=== PATIENT | female | born 1985 | race Hispanic/Latino ===

== ENCOUNTER 2022-06-26 18:23 | Observation (INO) | payer OTHER ==
--- OUTSIDE RECORDS SUMMARY | 2022-06-26 18:27 | XMS REPORT | Continuity of Care Document ---
:1985 Author Organization [facility] t Address [address] [place] [address] [address] [place] [address] Care Team Providers Name Role Phone PCP, PATIENT DOES NOT HAVE A Primary Care Physician Unavaila CIERA Mitchell Attending Clinician Unavailable Ciera Yancey Attending Clinician [phone] Visit, [place] Nurse Attending Clinician Unavailable LEBRON MENDES Attending Clinician Unavailable Lebron Luna Attending Clinician Iman Iverson Attending Clinician IMAN LEE Attending Clinician Unavailable Doctor Unassigned, [place] Attending Clinician Unavailable Lab, Adc Fam Pob I Attending Clinician Unavailable Ariana Machado MD Attending Clinician ARIANA MACHADO Attending Clinician Unavailable Juan Krause DO Attending Clinician Maryana Lee DO Attending Clinician Maria R Jacobo MD Attending Clinician MARIA R JACOBO Attending Clinician Unavailable MARIA R JACOBO Attending Clinician Unavailable Risk, Grt-Amfsz-Zc/High Attending Clinician Unavailable Megan Sebastian Attending Clinician Ultrasound, Doug-Mfnina Attending Clinician Unavailable Thania Krause MD Attending Clinician Faculty, Doug [facility] Attending Clinician Unavailable Elpidio Nolasco MD Attending Clinician Emilee Marcial MD Attending Clinician Lab, [place] Attending Clinician Unavailable HEIDY PARKER Attending Clinician Unavailable Jose DURAND, Maria R Admitting Clinician MARIA R JACOBO Admitting Clinician Unavailable Payers Payer Name Policy Type Policy Number Effective Date Expiration Date Nitin RIGGS [id number] 2019 HEALTH 00:00:00 Problems Condition Condition Condition Status Onset Resolution Last Treating Co mments Source Name Details Category Date Date Treatment Clinician Date Well woman Well woman Disease Active U nivers exam exam 6-08 ity of 00:00: [address] Encounter Encounter Disease Active Uni vers for for 1-18 ity of initial initial 00:00: [place] prescripti prescripti 00 Me dical on of on of Branch injectable injectable contracept contracept michael michael Disease Active Univers control control 9 [place] [address] [place] [address] BMI BMI Disease Active Univers 26.0-26.9, 26.0-26.9, 9- it y of adult adult 00:00: [address] Allergies, Adverse Reactions, Alerts Allergy Allergy Status Severity Reaction(s) Onset Inactive Treating Comm ents Source Name Type Date Date Clinician NO KNOWN Drug Active Univers ALLERGIE Class ity of S [facility] Social History Social Habit Start Date Stop Date Quantity Comments Source Exposure to 2022-03-26 2022-04-05 Not sure [facility] SARS-CoV-2 00:00:00 13:21:00 [facility] (event) [place] Tobacco use and 2022-04-05 2022-04-05 Smokeless tobacco Un iversity of exposure 00:00:00 00:00:00 non-user [facility] Alcohol intake 2022-04-05 2022-04-05 0 /d University 00:00:00 00:00:00 [facility] Sex Ass[birth year] At [birth year] Universit y of 00:00:00 00:00:00 [facility] Smoking Status Start Date Stop Date Source Never smoked tobacco [facility] Medications Ordered Filled Start Stop Current Ordering Indication Dosage Frequency Signature Comments Components Source Medication Medication Date Date Medication? Clinician (SIG) Name Name medroxyPROG 2021-2022- Yes [id number] 150mg Univers ESTERone 04-05 ity of (DEPO-PROVE 19:00: 18:59 [place] RA) 00 :00 Medical injection Branch 150 mg medroxyPROG 2021-2022- Yes [id number] 150mg 150 mg, Univers ESTERone 04-05 Intramuscu ity of (DEPO-PROVE 19:00: 18:59 lar, [place] RA) 00 :00 [id number], Medical injection 4 doses, Branch 150 mg First dose on Sun04/05/22 at 1400, Last dose on Sun12/13/22 at 1400, Routine medroxyPROG 2021-2022- Yes [id number] 150mg Univers ESTERone 04-05 ity of (DEPO-PROVE 19:00: 18:59 [place] RA) 00 :00 Medical injection Branch 150 mg medroxyPROG 2022- Yes [id number] 150mg 150 mg, Univers ESTERone 04-05 Intramuscu ity of (DEPO-PROVE 19:00: 18:59 lar, [place] RA) 00 :00 [id number], Medical injection 4 doses, Branch 150 mg First dose on Sun04/05/22 at 1400, Last dose on Sun12/13/22 at 1400, Routine Immunizations Ordered Filled Immunization Date Status Comments Sour e Immunization Name Name HPV9 2022-04-05 Completed University of 00:00:00 [facility] HPV9 2022-04-05 Completed University 00:00:00 [facility] Influenza Virus 2020-05-12 Completed Universit y of Vaccine Quad .5 mL 00:00:00 [facility] 6+ MO Branch Influenza Virus 2020-05-12 Completed Universit y of Vaccine Quad .5 mL 00:00:00 [facility] 6+ MO Branch TDAP (ADACEL) 2019-10-01 Completed University of VACCINE 00:00:00 [facility] Influenza Virus 2019-10-01 Completed Universit y of Vaccine Quad .5 mL 00:00:00 [facility] 6+ MO Branch TDAP (ADACEL) 2019-10-01 Completed University of VACCINE 00:00:00 [facility] Influenza Virus 2019-10-01 Completed Universit y of Vaccine Quad .5 mL 00:00:00 [facility] IM 6+ MO Branch Influenza Virus 2015-05-17 Completed Universit y of Vaccine Quad IM 3+ 00:00:00 [facility] Branch Influenza Virus 2015-05-17 Completed Universit y of Vaccine Quad IM 3+ 00:00:00 [facility] Branch TDAP 2015-02-11 Completed University of 00:00:00 [facility] TDAP 2015-02-11 Completed University of 00:00:00 [facility] Influenza Virus 2014-09-04 Completed Universit y of Vaccine Quad IM 00:00:00 [place] Med ical Multi-dose 6+ MO Branch Influenza Virus 2014-09-04 Completed Universit y of Vaccine Quad IM 00:00:00 [place] Med ical Multi-dose 6+ MO Branch Vital Signs Vital Name Observation Time Observation Value Comments Source Systolic blood 2022-04-05 18:22:00 124 [facility]Hg[facility] Diastolic blood 2022-04-05 18:22:00 82 mm[Hg] [facility] Heart rate 2022-04-05 18:22:00 69 /min [facility] Body temperature 2022-04-05 18:22:00 36.39 Zaria [facility] Respiratory rate 2022-04-05 18:22:00 18 /min [facility] Body height 2022-04-05 18:22:00 154.9 cm [facility] Body weight 2022-04-05 18:22:00 67.586 kg [facility] BMI 2022-04-05 18:22:00 28.15 kg/m2 [facility] Procedures Procedure Date / Time Performing Clinician Source Performed GC & CHLAMYDIA 2022-04-05 19:17:00 Ciera Bundy [facility] AMPLIFIED ASSAY [facility] HIV 1/2 AG-AB WITH 2022-04-05 19:17:00 Ciera Bundy [facility] REFLEX [facility] TRICHOMONAS AMPLIFIED 2022-04-05 19:17:00 [facility] PAP SMEAR-LIQUID 2022-04-05 19:17:00 Ciera Bundy Univer sity [facility] BASED-CP [facility] GALV ONLY - SYPHILIS 2022-04-05 19:17:00 [facility] IGG/IGM [facility] GARDASIL 9 (HPV 9V) 2022-04-05 19:01:11 [facility]ACC[facility] POCT TEST 2022-04-05 18:33:00 Ciera Bundy [facility] Encounters Start End Encounter Admission Attending Care Care Encounter Source Date/Time Date/Time Type Type Clinicians Facility Department ID 2021-06-17 Emergency [facility] [id number] [facility] 2022-[facility] 2022-06-28 Outpatient R [facility] [id number] Univers 10:00:00 10:00[facility] 2022-04-05 2022-04-05 [facility] [id number] Univers 13:00:00 14:16:33 CIERA sabillon [facility] 2022-04-05 2022-04-05 [facility] [id number] Univers 13:00:00 14:16:33 Visit Ciera Barragan 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 350.1.13.10 ity [facility] 4.2.7.2.686 Efren as MATERNAL [phone] Med ical & CHILD [address] [place] [address] 2022-04-05 2022-04-05 Outpatient R NIHARIKA [facility] [id number] Univers 13:00:00 14:16:33 CIERA sabillon [facility] 2022-03-27 2022-03-27 Outpatient R NIHARIKA [facility] [id number] Univers 09:00:00 09:00:00 CIERA sabillon [facility] 2022-02-16 2022-02-16 Telephone Niharika [facility] 1.2.840.114 [id number] Univers 00:00:00 00:00:00 Ciera Barragan 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 350.1.13.10 ity of [facility] 4.2.7.2.686 Efren as MATERNAL [phone] [facility] & [address] 2022-01-27 2022-01-27 Outpatient R [facility] [id number] Univers 09:45:00 09:45:00 CIERA sabillon [facility] 2022-01-02 2022-01-02 Outpatient R JOANNKWAME, [facility] [id number] Univers 08:30:00 08:53:52 CIERA sabillon [facility] 2022-01-02 2022-01-02 Nurse Visit, Ang-Rmp Nurse [facility] 1.2 .840.114 [id number] Univers 08:30:00 08:53:52 Visit Ciera Bundy 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 350.1.13. 10 ity of [facility] 4.2.7.2.686 Efren as MATERNAL [phone] [address] 2021-10-10 2021-10-10 Outpatient R VAUGHN [facility] [id number] Univers 09:30:00 10:21:35 ANDRIAJENNIFERNatasha sabillon [facility] 2021-10-10 2021-10-10 Nurse Visit, Ang-Rmchp Nurse [facility] 1.2 .840.114 [id number] Univers 09:30:00 10:21:35 Visit Lebron Mendes 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 350.1.13.10 ity of [facility] 4.2.7.2.686 Efren as MATERNAL [id number] [facility] & [address] 2021-10-04 2021-10-04 Outpatient Nawaf MENDES [facility] [id number] Univers 13:00:00 13:00:00 CARMENSABINAJENNIFERNatasha sabillon [facility] 2021-07-12 2021-07-12 Nurse Visit, Ang-Rmchp Nurse [facility] 1.2 .840.114 [id number] Univers 13:21:52 13:37:32 Visit Iman Lee 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 350.1.13.10 ity [facility] 4.2.7.2.686 Efren as MATERNAL [phone] [facility] & CHILD [address] [place] [address] 2021-07-12 2021-07-12 Outpatient R JESUS [facility] [id number] Univers 13:00:00 13:37:32 IMAN ity [facility] 2021-07-12 2021-07-12 Orders Doctor ZEESHAN 1.2.840.114 [id number] Univers 00:00:00 00:00:00 Only UnassALEXIS singh 350.1.13.10 ity [facility] 4.2.7.2.686 Efren as [phone] [address] 2021-04-19 2021-04-19 Nurse Visit, [facility] Nurse [facility] 1.2 .840.114 [id number] Univers 12:56:02 13:13:16 Visit Lebron Mendes 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 350.1.13.10 ity [facility] 4.2.7.2.686 Efren as MATERNAL [id number] [facility] ical & CHILD [address] [place] [address] 2021-04-19 2021-04-19 Outpatient R [facility] [id number] Univers 10:00:00 10:00:00 ity [facility] 2021-03-31 2021-03-31 Laboratory Lab, [facility] Pob I [facility] 1.2. 840.114 [id number] Univers 10:16:00 10:36:00 Only Ariana Machado [facility].1.13.10 [facility] 4.2.7.2.686 Efren as Professio [phone] Mi [facility] [address] [place] [address] 2021-03-31 2021-03-31 Outpatient R RUBEN [facility] [id number] Univers 10:20:00 10:20:00 ARIANA [facility] 2021-01-25 2021-01-25 Office [facility] [id number] Univers 09:24:09 10:24:06 Visit Ciera Barragan 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 350.1.13.10 ity of REGIONAL 4.2.7.2.686 Efren as MATERNAL [id number] [facility] ical & CHILD [address] [place] [address] 2021-01-25 2021-01-25 Outpatient [facility] [id number] Univers 09:15:00 09:15:00 CIERA lewis o [facility] 2021-01-25 2021-01-25 Outpatient [facility] [id number] Univers 08:30:00 08:30:00 LEBRON sabillon [facility] 2020-11-08 2020-11-08 Patient [facility] 1.2.840.114 [id number] Univers 00:00:00 00:00:00 Outreach Juan MACHADO 350.1.13.10 i ty of [facility] 4.2.7.2.686 [place] ESPINOS[place] [phone] [address] 2020-10-29 2020-10-29 Nurse Visit, [place] Nurse [facility] 1.2 .840.114 [id number] Univers 09:39:45 10:07:51 Visit Lebron Mendes 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 350.1.13.10 ity of REGIONAL 4.2.7.2.686 Efren as MATERNAL [id number] [facility] & CHILD [address] [place] [address] 2020-10-29 2020-10-29 Outpatient R VAUGHN [facility] [id number] Univers 09:30:00 09:30:00 LEBRON sabillon [facility] 2020-10-27 2020-10-27 Outpatient R [facility] [id number] Univers 10:30:00 10:30:00 ity of [facility] 2020-08-04 2020-08-04 Nurse Visit, [place] Nurse [facility] 1.2 .840.114 [id number] Univers 16:02:30 16:29:02 Visit Ciera Bundy 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 350.1.13. 10 ity of REGIONAL 4.2.7.2.686 Efren as MATERNAL [id number] [facility] & CHILD [address] [place] [address] 2020-08-04 2020-08-04 Outpatient R [facility] [id number] Univers 16:00:00 16:00:00 ity of [facility] 2020-05-12 2020-05-12 Nurse Visit, Doug-Rmchp Nurse [facility] 1.2 .840.114 [id number] Univers 15:44:14 16:17:26 Visit Carmen Mendeslina Mccracken 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 350.1.13.10 ity of [facility] 4.2.7.2.686 Efren as MATERNAL [id number] [facility] [address] [place] [address] 2020-05-12 2020-05-12 Outpatient [facility] [id number] Univers 15:30:00 15:30:00 LEBRON ity o f [facility] 2020-05-11 2020-05-11 Outpatient R [facility] [id number] Univers 14:00:00 14:00:00 ity of [facility] 2020-05-07 2020-05-07 Emergency [facility] 1.2.840.114 [id number] Univers 10:32:00 11:50:00 Maryana Duarte [place] 350.1.13.10 ity [facility] 4.2.7.2.686 [place] [facility] [phone] [address] 2020-02-17 2020-02-17 Office [facility] 1.2.840.114 [id number] Univers 15:32:08 16:06:38 Visit Lebron Mccracken 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 350.1.13.10 ity of [facility] 4.2.7.2.686 Efren as MATERNAL [id number] [facility] & CHILD [address] [place] [address] 2020-02-17 2020-02-17 Outpatient R [facility] [id number] Univers 15:15:00 15:15:00 ANDRIANDNatasha itforrest o f [facility] 2020-02-12 2020-02-12 Refill [facility] 1.2.840.114 [id number] Univers 00:00:00 00:00:00 Lebron R 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 350.1.13.10 ity of [facility] 4.2.7.2.686 Efren as MATERNAL [id number] [facility] & CHILD [address] [place] [address] 2020-02-02 2020-02-02 Outpatient R VAUGHN [facility] [id number] Univers 14:15:00 14:15:00 LEBRON butt [facility] 2020-01-21 2020-01-21 Outpatient R VAUGHN [facility] [id number] Univers 07:45:00 07:45:00 LEBRON butt [facility] 2020-01-14 2020-01-14 Office [facility] 1.2.840.114 [id number] Univers 15:33:23 16:12:18 Visit Lebron R 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 350.1.13.10 ity of [facility] 4.2.7.2.686 Efren as MATERNAL [phone] [facility] & [address] 2020-01-14 2020-01-14 Outpatient R VAUGHN [facility] [id number] Univers 15:15:00 15:15:00 LEBRON butt [facility] 2019-12-25 2019-12-25 Outpatient R VAUGHN [facility] [id number] Univers 13:45:00 13:45:00 LEBRON sabillon [facility] 2019-12-25 2019-12-25 Telemedici [facility] 1.2.840.114 [id number] Univers 12:32:56 12:47:56 ne Visit Lebron R 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 350.1.13.10 ity of [facility] 4.2.7.2.686 Efren as MATERNAL [id number] [facility] & [address] 2019-12-03 2019-12-06 Hospital ZEESHAN Jacobo 1.2.840.114 [id number] Univers 07:04:00 18:18:00 Encounter Maria R ESPINOZA 350.1.13.10 ity of [facility] 4.2.7.2.686 Efren as [phone] [address] 2019-12-03 2019-12-03 Outpatient P MARIA R JACOBO [facility] BRUCE [id number] Univers 07:04:00 07:04:00 MARIA R JACOBO itforrest [facility] 2019-12-02 2019-12-02 [facility]phone [facility] [id number] Univers 00:00:00 00:00:00 Roshunda R 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 350.1.13.10 ity of [facility] 4.2.7.2.686 Efren as MATERNAL [phone] [facility] ical & CHILD [address] [place] [address] 2019-12-02 2019-12-02 [facility] [id number] [id number] Univers 00:00:00 00:00:00 Roshunda R 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 350.1.13.10 ity of [facility] 4.2.7.2.686 Efren as MATERNAL [id number] [facility] & CHILD [address] [place] [address] 2019-12-01 2019-12-01 Routine [facility] 1.2.840.114 [id number] Univers 09:07:38 11:07:15 Roshunda R 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 350.1.13.10 ity of Visit [facility] 4.2.7.2.686 Efren as MATERNAL [id number] [facility] CHILD [address] [place] [address] 2019-12-01 2019-12-01 Outpatient Nawaf [facility] [id number] Univers 09:00:00 09:00:00 ROSHUNDA ity o f [facility] 2019-12-01 2019-12-01 Orders Doctor ZEESHAN 1.2.840.114 [id number] Univers 00:00:00 00:00:00 Only Unassigned, ALEXIS 350.1.13.10 ity of [place] [facility] 4.2.7.2.686 Efren as [phone] [address] 2019-11-27 2019-11-27 [facility] 1.2.840.114 [id number] Univers 08:59:16 09:37:15 Roshunda R 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 350.1.13.10 ity of Visit [facility] 4.2.7.2.686 Efren as MATERNAL [id number] [facility] ical & CHILD [address] [place] [address] 2019-11-27 2019-11-27 Outpatient Nawaf [facility] [id number] Univers 09:00:00 09:00:00 ROSHUNDA ity o f [facility] 2019-11-21 2019-11-21 Telephone Vaughn [facility] 1.2.214.493 [id number] Univers 00:00:00 00:00:00 Anaia R 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 350.1.13.10 ity of REGIONAL 4.2.7.2.686 Efren as MATERNAL [id number] [facility] ical & CHILD 107 [facility] 2019-11-21 2019-11-21 Abstract Vaughn [facility] 1.2.840.114 [id number] Univers 00:00:00 00:00:00 Lebron R 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 350.1.13.10 ity of REGIONAL 4.2.7.2.686 Efren as MATERNAL [id number] [facility] ical & CHILD [address] [place] [address] 2019-11-20 2019-11-20 Routine Risk, Zyz-Tckrr-Kc/High [facility] 1. 2.840.114 [id number] Univers 09:52:39 11:26:41 Megan Abel 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 350.1.13.10 ity of Visit REGIONAL 4.2.7.2.686 Efren as MATERNAL [id number] [facility] ical & CHILD [address] [place] [address] 2019-11-20 2019-11-20 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[facility] 1.2 .840.114 [id number] Univers 09:04:19 09:34:19 Visit Thania Krause 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 350.1.13.10 ity of REGIONAL 4.2.7.2.686 Efren as MATERNAL [id number] [facility] ical & CHILD 369 [facility] 2019-11-20 2019-11-20 Outpatient R [facility] [id number] Univers 09:00:00 09:00:00 ity of [facility] 2019-11-20 2019-11-20 Orders Doctor BYERS 1.2.840.114 [id number] Univers 00:00:00 00:00:00 Only Unassigned, ALEXIS 350.1.13.10 ity of [facility] 4.2.7.2.686 Efren as [phone] [address] 2019-11-17 2019-11-17 Telemedici Faculty, [facility] 1.2.840.114 [id number] Univers 08:16:17 12:33:55 ne Visit Thania Krause 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 350.1.13.10 ity of REGIONAL 4.2.7.2.686 Efren as MATERNAL [id number] [facility] [address] [place] [address] 2019-11-17 2019-11-17 Outpatient R [facility] [id number] Univers 09:00:00 09:00:00 ity of [facility] 2019-11-17 2019-11-17 Orders Doctor ZEESHAN 1.2.840.114 [id number] Univers 00:00:00 00:00:00 Only Unassigned, ALEXIS 350.1.13.10 ity of [place] [facility] 4.2.7.2.686 Efren as [phone] [address] 2019-11-13 2019-11-13 Outpatient R [facility] [id number] Univers 08:15:00 08:15:00 ity [facility] 2019-11-12 2019-11-12 Telephone Faculty, [facility] 1.2.840.114 [id number] Univers 00:00:00 00:00:00 [facility] 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 350.1.13.10 ity of [facility] 4.2.7.2.686 Efren as MATERNAL [id number] [facility] & CHILD [address] [place] [address] 2019-11-10 2019-11-10 Routine Vaughn [facility] 1.2.840.114 [id number] Univers 09:25:13 10:29:10 Roshunda R 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 350.1.13.10 ity of Visit [facility] 4.2.7.2.686 Efren as MATERNAL [id number] [facility] & [address] 2019-11-10 2019-11-10 Outpatient R [facility] [id number] Univers 09:15:00 09:15:00 ity [facility] 2019-11-06 2019-11-06 [facility] 1.2.840.114 [id number] Univers 08:23:51 09:26:24 Roshunda R 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 350.1.13.10 ity of Visit REGIONAL 4.2.7.2.686 Efren as MATERNAL [id number] [facility] ical & CHILD [address] [place] [address] 2019-11-06 2019-11-06 Outpatient R [facility] [id number] Univers 08:15:00 08:15:00 ity of [facility] 2019-11-03 2019-11-03 Routine Faculty, Doug Mei [facility] 1.2 .840.114 [id number] Univers 08:38:38 09:08:38 Elpidio Nolasco 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 350.1.13. 10 ity of Visit REGIONAL 4.2.7.2.686 Efren as MATERNAL [id number] [facility] [address] [place] [address] 2019-11-03 2019-11-03 Outpatient R [facility] [id number] Univers 09:00:00 09:00:00 ity of [facility] 2019-11-03 2019-11-03 Outpatient R [facility] [id number] Univers 08:00:00 08:00:00 ity of [facility] 2019-10-22 2019-10-22 Telephone Vaughn [facility] 1.2.205.496 [id number] Univers 00:00:00 00:00:00 Lebron Mccracken 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 350.1.13.10 ity of REGIONAL 4.2.7.2.686 Efren as MATERNAL [id number] [facility] & CHILD [address] [place] [address] 2019-10-20 2019-10-20 Routine Faculty, Doug Mei [facility] 1.2 .840.114 [id number] Univers 09:21:21 10:23:24 Thania Krause 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 350.1.13.10 ity of Visit Emilee Marcial REGIONAL 4.2.7.2.686 [place] MATERNAL [phone] [facility] CHILD [address] [place] [address] 2019-10-20 2019-10-20 Outpatient R [facility] [facility] [id number] Univers 09:30:00 09:30:00 ity of [facility] 2019-10-20 2019-10-20 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, [facility] 1.2 .840.114 [id number] Univers 08:10:53 08:40:53 Visit Thania Krause 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 350.1.13.10 ity of REGIONAL 4.2.7.2.686 Efren as MATERNAL [phone] [facility] ical & CHILD 369 [facility] 2019-10-20 2019-10-20 [facility] 1.2.840.114 [id number] Univers 00:00:00 00:00:00 Roshunda R 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 350.1.13.10 ity of [facility] 4.2.7.2.686 Efren as MATERNAL [phone] [facility] & CHILD [address] [place] [address] 2019-10-14 2019-10-14 [facility] 1.2.840.114 [id number] Univers 07:52:52 08:53:28 Roshunda R 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 350.1.13.10 ity of Visit [facility] 4.2.7.2.686 Efren as MATERNAL [phone] [facility] & [address] 2019-10-14 2019-10-14 Outpatient R [facility] [id number] Univers 08:00:00 08:00:00 ROSHUNDA ity o f [facility] 2019-10-14 2019-10-14 Orders Doctor ZEESHAN 1.2.840.114 [id number] Univers 00:00:00 00:00:00 Only Unassigned, ALEXIS 350.1.13.10 ity of [facility] 4.2.7.2.686 Efren as [phone] [address] 2019-10-07 2019-10-07 [facility] 1.2.840.114 [id number] Univers 00:00:00 00:00:00 Roshunda R 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 350.1.13.10 ity of [facility] 4.2.7.2.686 Efren as MATERNAL [phone] [facility] ical & CHILD [address] [place] [address] 2019-10-01 2019-10-01 [facility] 1.2.840.114 [id number] Univers 08:13:24 09:21:41 Roshunda R 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 350.1.13.10 ity of Visit [facility] 4.2.7.2.686 Efren as MATERNAL [phone] Med ical & CHILD 107 [facility] 2019-10-01 2019-10-01 Orders Doctor ZEESHAN 1.2.840.114 [id number] Univers 00:00:00 00:00:00 Only Unassigned, ALEXIS 350.1.13.10 ity of [place] [facility] 4.2.7.2.686 Efren as [phone] [address] 2019-09-24 2019-09-24 Nurse Visit, [facility] Nurse [facility] 1.2 .840.114 [id number] Univers 09:06:19 09:56:52 Visit Lebron Mendes 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 350.1.13.10 ity of [facility] 4.2.7.2.686 Efren as MATERNAL [phone] Med ical & CHILD 107 [facility] 2019-09-23 2019-09-23 Telephone Vaughn [facility] [id number] Univers 00:00:00 00:00:00 Anaia R 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 350.1.13.10 ity of [facility] 4.2.7.2.686 Efren as MATERNAL [phone] [facility] ical & CHILD [address] [place] [address] 2019-09-22 2019-09-22 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 114 [id number] Univers 08:10:16 08:35:49 Visit Lebron Mendes 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 350.1.13.10 ity of [facility] 4.2.7.2.686 Efren as MATERNAL [phone] Med ical & CHILD 107 [facility] 2019-09-10 2019-09-10 Telephone Vaughn [facility] [id number] Univers 00:00:00 00:00:00 Andrianda R 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 350.1.13.10 ity of [facility] 4.2.7.2.686 Efren as MATERNAL [phone] [facility] ical & CHILD 107 [facility] 2019-05-28 2019-05-28 Outpatient P [facility] [id number] Univers 08:30:00 09:01:01 HEIDY itforrest of [facility] 2019-05-02 2019-05-02 Telephone Vaughn [facility] [id number] Univers 00:00:00 00:00:00 Roshunda R 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 350.1.13.10 ity of REGIONAL 4.2.7.2.686 Efren as MATERNAL [id number] [facility] ical & CHILD [address] [place] [address] 2019-05-01 2019-05-01 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 114 [id number] Univers 08:06:43 08:21:43 Visit Carmen Mendeslina R 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 350.1.13.10 ity of REGIONAL 4.2.7.2.686 Efren as MATERNAL [phone] [facility] ical & CHILD [address] [place] [address] 2019-04-29 2019-04-29 Telephone Vaughn [facility] [id number] Univers 00:00:00 00:00:00 Roshunda R 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 350.1.13.10 ity of REGIONAL 4.2.7.2.686 Efren as MATERNAL [phone] [facility] ical & CHILD [address] [place] [address] 2019-04-29 2019-04-29 Telephone Vaughn [facility] [id number] Univers 00:00:00 00:00:00 Carmensabinanda R 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 350.1.13.10 ity of REGIONAL 4.2.7.2.686 Efren as MATERNAL [phone] Med ical & CHILD [address] [place] [address] 2019-04-28 2019-04-28 Initial Vaughn [facility] 1.2.840.114 [id number] Univers 13:33:27 14:58:34 Roshunda R 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 350.1.13.10 ity of Visit REGIONAL 4.2.7.2.686 Efren as MATERNAL [phone] [facility] ical & CHILD [address] [place] [address] 2019-04-28 2019-04-28 Orders Doctor BYERS 1.2.840.114 [id number] Univers 00:00:00 00:00:00 Only Unassigned, ALEXIS 350.1.13.10 ity of [facility] 4.2.7.2.686 Efren as [phone] [address] Results Test Description Test Time Test Comments Results Result Comments Source [facility] ONLY - SYPHILIS IGG/IGM 2022-04-06 16:49:28 Test Item Value Reference Range Interpretation Comme nts Syphilis IgG/IgM (test code = Non-reactive Non-reactive 56330-4) LEENA (test code = LEENA) Non-reactive - No serologic evidence of T. pallidum infection. Cannot exclude incubating or early syphilis. Submit a second specimen in 2-4 weeks if syphilis is clinically suspected. Equivocal - Further testing to follow. Reactive - Further testing to follow. Lab Interpretation (test code = Normal 20081-2) [facility] ONLY - SYPHILIS [id number] 16:49:28 Test Item Value Reference Range Interpretation Comments Syphilis IgG/IgM (test Non-reactive Non-reactive code = 55104-5) LEENA (test code = LEENA) Non-reactive - No serologic evidence of T. pallidum infection. Cannot exclude incubating or early syphilis. Submit a second specimen in 2-4 weeks if syphilis is clinically suspected. Equivocal - Further testing to follow. Reactive - Further testing to follow. Lab Interpretation (test Normal code = 16495-5) [facility] 1/2 AG-AB WITH [id number] 05:43:58 Test Item Value Reference Range Interpretation Comments HIV Negative Negative Semi-quantitative (test code = 43500-1) LEENA (test code = Non-reactive for HIV-1 LEENA) antigen and HIV-1/HIV-2 antibodies. ?No laboratory evidence of HIV infection. ?Repeat in 2-4 weeks if acute HIV infection is suspected. [facility] 1/2 AG-AB WITH [id number] 05:43:58 Test Item Value Reference Range Interpretation Comments HIV Negative Negative Semi-quantitative (test code = 12671-3) LEENA (test code = Non-reactive for HIV-1 LEENA) antigen and HIV-1/HIV-2 antibodies. ?No laboratory evidence of HIV infection. ?Repeat in 2-4 weeks if acute HIV infection is suspected. [id number]:33:00 Test Item Value Reference Range Interpretation Comments POCT PREG (test code = 1605) Negative On board controls acceptable with C Yes Line (test code = 3574) POCT PREG LOT # (test code = 3575) POCT PREG TEST DATE (test code = 3576) [facility] [id number] 18:33:00 Test Item Value Reference Range Interpretation Comments POCT PREG (test code = 1605) Negative On board controls acceptable with C Yes Line (test code = 3574) POCT PREG LOT # (test code = 3575) POCT PREG TEST DATE (test code = 3576) [facility]
[2022-06-26 19:17] LABS: Absolute Lymphocytes (CBC) 1.2 K/uL (0.7-4.9); Hematocrit 39.6 % (36.0-45.0); Lymphocytes % 12.8 % (15.3-44.8); MCV 91.1 fL (80-100); RBC Red Blood Cell Count 4.35 M/uL (3.86-4.86)
--- NOTE | 2022-06-26 19:28 | RAD REPORT ---
EXAM DESCRIPTION: RAD - Chest Single View - 06/26/2022 7:15 pm CLINICAL HISTORY: CHEST PAIN, primarily left side COMPARISON: April 2017 TECHNIQUE: AP portable chest image was obtained 06/26/2022 7:15 pm . FINDINGS: No peripheral mass consolidations seen. Heart and vasculature are normal. Left costophreni c angle blunting is present. No acute bony abnormality seen. No acute aortic findings suspected. IMPRESSION: Small left pleural effusion is suspected. No mass or consolidations seen.
[2022-06-26 19:47] LABS: Potassium 3.3 mmol/L (3.5-5.1); Troponin High Sensitivity 4.1 pg/mL (<58.9)
[2022-06-26 21:22] LABS: Urine Blood Negative (Negative); Urine Glucose Negative (Negative); Urine Protein Negative (Negative); Urine Specific Gravity 1.025 (1.005-1.030)
[2022-06-26 21:59] LABS: Urine Specific Gravity/Preg 1.025 (1.005-1.030)
--- NOTE | 2022-06-26 22:19 | RAD REPORT ---
EXAM DESCRIPTION: CT - Chest For Pe Angio - 06/26/2022 9:25 pm CLINICAL HISTORY: elevated dd, dyspnea COMPARISON: Chest Single View dated 06/26/2022 TECHNIQUE: Dynamically enhanced 3 mm thick images of the chest were obtained during administration o f approximately 150mL Isovue 370 IV contrast. Coronal and oblique MIP reconstruction images were gene rated and reviewed. Exam utilizes a protocol to evaluate the pulmonary arterial tree. All CT scans are performed using dose optimization technique as appropriate and may include automated exposure control or mA/KV adjustment according to patient size. FINDINGS: Pulmonary embolus is present at the left pulmonary artery bifurcation into the upper and l ower lobes. Thrombus continues into the segmental branches of the left lower lobe. Lung parenchymal o pacification lateral and posterior left lung base may well be pulmonary hemorrhage. Small left pleura l effusion is present. Segmental branch pulmonary emboli seen in the medial right upper lobe. Thrombu s is present in the right middle lobe pulmonary artery extending into segmental branches. There is a large pulmonary embolus in the right lower lobe pulmonary artery extending into the proximal segmenta l branches. The aorta as imaged shows no acute or suspicious finding. No pericardial thickening or effusion. Right lung field is clear. No right-sided pleural fluid. No pneumothorax. No mediastinal or hilar suspicious masses. No chest wall masses or abnormal axillary lymphadenopathy. No cardiomegaly or pericardial effusion. IMPRESSION: Extensive bilateral pulmonary emboli involving the lobar and segmental branches of the r ight middle, right lower and left lower lobes. Small segmental branch emboli seen in the right upper lobe. Small left pleural effusion. Lateral and posterior left lung base parenchymal opacification may be he morrhage from pulmonary infarction.
--- NOTE | 2022-06-26 22:28 | EDPHYS ---
Physician Documentation [facility] Name: Lisa Gloria Age: 36 yrs Sex: Female : 1985 Arrival Date: 06/26/2022 Time: 18:27 Bed 26 Private MD: ED Physician Vadim Bal HPI: 06/26 19:53 This 36 yrs old Female presents to ER via Ambulatory with complaints of Chest kb Pain, Shortness Of Breath, Back Pain. 19:54 The patient or guardian reports chest pain that is located primarily in the anterior kb chest wall, left. The pain does not radiate. Associated signs and symptoms: Pertinent positives: shortness of breath. The chest pain is described as aching. Duration: The patient or guardian reports a single episode, that is still ongoing. Modifying factors: The symptoms are alleviated by nothing. the symptoms are aggravated by deep breath. Severity of pain: At its worst the pain was mild moderate in the emergency department the pain is unchanged. The patient has not experienced similar symptoms in the past. The patient has not recently seen a physician. Pt reports left chest and back pain for 3 days with shortness of breath. 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 - Social history:: Smoking status: Patient denies any tobacco usage or history of. Patient/guardian denies using alcohol. ROS: 19:52 Constitutional: Negative for fever, chills, and weight loss. kb 19:52 Cardiovascular: Positive for chest pain, Negative for edema, orthopnea, palpitations, paroxysmal nocturnal dyspnea. 19:52 Respiratory: Positive for shortness of breath. 19:52 All other systems are negative. Exam: 19:52 Constitutional: This is a well developed, well nourished patient who is awake, alert, kb and in no acute distress. Head/Face: Normocephalic, atraumatic. ENT: Moist Mucous membranes Cardiovascular: Regular rate and rhythm with a normal S1 and S2. No gallops, murmurs, or rubs. No pulse deficits. Respiratory: Respirations even and unlabored. No increased work of breathing. Talking in full sentences Abdomen/GI: Soft, non-tender. No distention Skin: Warm, dry with normal turgor. Normal color. MS/ Extremity: Pulses equal, no cyanosis. Neurovascular intact. Full, normal range of motion. Neuro: Awake and alert, GCS 15, oriented to person, place, time, and situation. Moves all extremities. Normal gait. Psych: Awake, alert, with orientation to person, place and time. Behavior, mood, and affect are within normal limits. 19:52 ECG was reviewed by the Attending Physician. Vital Signs: 18:32 BP 129 / 87; Pulse 107; Resp 18; Temp 98.8(O); Pulse Ox 98% on R/A; Weight 68.04 kg; ld1 Height 5 ft. 1 in. (154.94 cm); Pain 6/10; 19:30 BP 122 / 80; Pulse 90; Resp 20; Pulse Ox 99% on R/A; tp1 20:30 BP 110 / 79; Pulse 87; Resp 22; Pulse Ox 98% on R/A; tp1 21:00 BP 107 / 76; Pulse 86; Resp 20; Pulse Ox 100% on R/A; tp1 22:45 BP 117 / 87; Pulse 77; Resp 23; Pulse Ox 100% on R/A; tp1 18:32 Body Mass Index 28.34 (68.04 kg, 154.94 cm) ld1 MDM: 18:35 Patient medically screened. kb 19:52 Data reviewed: vital signs, nurses notes. Data interpreted: Pulse oximetry: on room air kb is 98 %. Interpretation: normal. Counseling: I had a detailed discussion with the patient and/or guardian regarding: the historical points, exam findings, and any diagnostic results supporting the discharge/admit diagnosis, lab results, radiology results, the need for outpatient follow up, a family practitioner, to return to the emergency department if symptoms worsen or persist or if there are any questions or concerns that arise at home. 19:55 ED course: HEART score 0. kb 22:27 Physician consultation: Daniel WITT was contacted at 22:27, regarding admission, kb to the telemetry unit. and will see patient in ED. 06/26 18:50 Order name: Basic Metabolic Panel; Complete Time: 19:48 kb 06/26 18:50 Order name: CBC with Diff; Complete Time: 19:58 kb 06/26 18:50 Order name: D-Dimer; Complete Time: 19:58 kb 06/26 18:50 Order name: NT PRO-BNP; Complete Time: 19:48 kb 06/26 18:50 Order name: Troponin HS; Complete Time: 19:48 kb 06/26 21:21 Order name: Urine --Ancillary (enter results); Complete Time: 21:59 kb 06/26 18:50 Order name: XRAY Chest (1 view); Complete Time: 19:35 kb 06/26 18:50 Order name: EKG; Complete Time: 18:51 kb 06/26 18:50 Order name: Cardiac monitoring; Complete Time: 18:57 kb 06/26 19:55 Order name: CT Chest For PE Angio; Complete Time: 22:19 kb 06/26 21:22 Order name: Urine Dipstick-Ancillary; Complete Time: 21:29 EDMS 06/26 22:28 Order name: SARS RAPID kb 06/26 22:29 Order name: COVID-19 SARS RT PCR (Document "Date of Onset" if Symptomatic) bb 06/26 18:50 Order name: EKG - Nurse/Tech; Complete Time: 18:57 kb 06/26 18:50 Order name: IV Saline Lock; Complete Time: 19:05 kb 06/26 18:50 Order name: Labs collected and sent; Complete Time: 19:05 kb 06/26 18:50 Order name: O2 Per Protocol; Complete Time: 18:57 kb 06/26 18:50 Order name: O2 Sat Monitoring; Complete Time: 18:57 kb EC:52 Rate is 91 beats/min. Rhythm is regular. QRS Wise is Normal. TN interval is normal at kb 146 msec. QRS interval is normal at 66 msec. QT interval is normal at 423 msec. Administered Medications: 22:53 Drug: Lovenox (enoxaparin) 1 mg/kg Route: Sub-Q; Site: right lower abdomen; tp1 06/27 00:41 Follow up: Response: No adverse reaction bb Disposition: 17:09 Co-signature as Attending Physician, Vadim Bal MD. rn Disposition Summary: 06/26/22 22:28 Hospitalization Ordered Hospitalization Status: Observation kb Location: Telemetry/MedSurg (observation) kb Condition: Stable kb Problem: new kb Symptoms: are unchanged kb Bed/Room Type: Standard kb Provider: Amrit Bal(06/26/22 22:29) melvin Room Assignment: [facility] [place](06/27/22 00:38) mw Diagnosis - Other pulmonary embolism without acute cor pulmonale kb Forms: - Medication Reconciliation Form kb - SBAR form kb Signatures: Dispatcher [employer] EDMS Indiana Warner, MIRYAM RICHARDSON-Edna Wolf RN RN Vadim Bal MD MD rn Attema, Lee, FNP-Yung RICHARDSON-Kadi Suárez RN RN ld1 Rose Mary Teran RN RN tp1 Susan Pink RN bb Corrections: (The following items were deleted from the chart) 06/26 22:29 22:28 Cody Pretty la06/27 00:38 06/26 22:28 kb
--- NOTE | 2022-06-26 22:28 | ER ---
Nurse's Notes [facility] Name: Lisa Gloria Age: 36 yrs Sex: Female : 1985 Arrival Date: 06/26/2022 Time: 18:27 Bed 26 Private MD: Diagnosis: Other pulmonary embolism without acute cor pulmonale Presentation: 06/26 18:32 Chief complaint: Patient states: Chest pain X 3 days - intermittent pain. Left sided ld1 pain + midsternal chest pain. Coronavirus screen: At this time, the client does not indicate any symptoms associated with coronavirus-19. Ebola Screen: No symptoms or risks identified at this time. Initial Sepsis Screen: Does the patient meet any 2 criteria? No. Patient's initial sepsis screen is negative. Does the patient have a suspected source of infection? No. Patient's initial sepsis screen is negative. Risk Assessment: Do you want to hurt yourself or someone else? Patient reports no desire to harm self or others. Onset of symptoms was June 26, 2022. 18:32 Method Of Arrival: Ambulatory ld1 18:32 Acuity: MENDY 3 ld1 Triage Assessment: 18:34 General: Appears in no apparent distress. comfortable, Behavior is calm, cooperative, ld1 appropriate for age. Pain: Complains of pain in chest Pain does not radiate. Pain currently is 6 out of 10 on a pain scale. at worst was 10 out of 10 on a pain scale. Quality of pain is described as sharp, shooting, throbbing. EENT: No signs and/or symptoms were reported regarding the EENT system. Neuro: Level of Consciousness is awake, alert, obeys commands, Oriented to person, place, time, situation, Appropriate for age. Cardiovascular: Capillary refill < 3 seconds Patient's skin is warm and dry. Respiratory: Airway is patent Respiratory effort is even, unlabored. GI: Abdomen is round non-distended. : No signs and/or symptoms were reported regarding the genitourinary system. 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 - Social history:: Smoking status: Patient denies any tobacco usage or history of. Patient/guardian denies using alcohol. Screenin:43 Abuse screen: Denies threats or abuse. Denies injuries from another. Nutritional tp1 screening: No deficits noted. Tuberculosis screening: No symptoms or risk factors identified. Fall Risk None identified. Assessment: 18:40 General: Appears in no apparent distress. comfortable, Behavior is cooperative, tp1 anxious. Pain: Complains of pain in chest and left lower back Pain radiates to left lateral anterior chest Pain currently is 3 out of 10 on a pain scale. at worst was 7 out of 10 on a pain scale. Quality of pain is described as sharp, Pain began 1 day ago. Neuro: Level of Consciousness is awake, alert, obeys commands, Oriented to person, place, time, situation, Denies blurred vision. Cardiovascular: Denies diaphoresis, lightheadedness, Patient's skin is warm and dry. Respiratory: Reports shortness of breath at rest on exertion pain with respiration Airway is patent Respiratory effort is even, unlabored. GI: Abdomen is flat, non-distended, Patient currently denies diarrhea, nausea, vomiting. : Denies burning with urination, urinary frequency. EENT: No signs and/or symptoms were reported regarding the EENT system. Derm: Skin is pink, warm \T\ dry. Musculoskeletal: Circulation, motion, and sensation intact. 19:06 Reassessment: Xray at bedside. tp1 19:40 Reassessment: Patient appears in no apparent distress at this time. No changes from tp1 previously documented assessment. Patient and/or family updated on plan of care and expected duration. Pain level reassessed. Patient is alert, oriented x 3, equal unlabored respirations, skin warm/dry/pink. Patient denies pain at this time. 20:30 Reassessment: Patient appears in no apparent distress at this time. No changes from tp1 previously documented assessment. Patient is alert, oriented x 3, equal unlabored respirations, skin warm/dry/pink. 21:38 Reassessment: Patient appears in no apparent distress at this time. No changes from tp1 previously documented assessment. Patient is alert, oriented x 3, equal unlabored respirations, skin warm/dry/pink. pain to the left side of ribs rated 3/10. denies chest pain. 22:53 Reassessment: Patient appears in no apparent distress at this time. No changes from tp1 previously documented assessment. Patient is alert, oriented x 3, equal unlabored respirations, skin warm/dry/pink. rates pain 3/10. 06/27 00:45 Reassessment: Patient is alert, oriented x 3, equal unlabored respirations, skin bb warm/dry/pink. report called to Mikala ESCOBAR for room 207. Vital Signs: 06/26 18:32 BP 129 / 87; Pulse 107; Resp 18; Temp 98.8(O); Pulse Ox 98% on R/A; Weight 68.04 kg; ld1 Height 5 ft. 1 in. (154.94 cm); Pain 6/10; 19:30 BP 122 / 80; Pulse 90; Resp 20; Pulse Ox 99% on R/A; tp1 20:30 BP 110 / 79; Pulse 87; Resp 22; Pulse Ox 98% on R/A; tp1 21:00 BP 107 / 76; Pulse 86; Resp 20; Pulse Ox 100% on R/A; tp1 22:45 BP 117 / 87; Pulse 77; Resp 23; Pulse Ox 100% on R/A; tp1 18:32 Body Mass Index 28.34 (68.04 kg, 154.94 cm) ld1 ED Course: 18:27 Patient arrived in ED. mr 18:30 Indiana Warner, MIRYAM [facility] kb 18:30 Vadim Bal MD is Attending Physician. kb 18:33 Triage completed. ld1 18:34 Arm band placed on right wrist. ld1 18:43 Patient has correct armband on for positive identification. Bed in low position. Call tp1 light in reach. Adult w/ patient. Pulse ox on. NIBP on. 18:47 Patient maintains SpO2 saturation greater than 95% on room air. tp1 18:57 Rose Mary Teran, LUZ is Primary Nurse. tp1 19:05 No provider procedures requiring assistance completed. Inserted saline lock: 20 gauge tp1 in right antecubital area, using aseptic technique. Blood collected. 19:17 XRAY Chest (1 view) In Process Unspecified. EDMS 21:27 CT Chest For PE Angio In Process Unspecified. EDMS 22:28 Cody Pretty MD is Hospitalizing Provider. kb 22:29 Amrit Bal MD is Hospitalizing Provider. la1 06/27 00:45 Patient admitted, IV remains in place. bb Administered Medications: 06/26 22:53 Drug: Lovenox (enoxaparin) 1 mg/kg Route: Sub-Q; Site: right lower abdomen; tp1 06/27 00:41 Follow up: Response: No adverse reaction bb Medication: 06/26 18:47 VIS not applicable for this client. tp1 Outcome: 22:28 Decision to Hospitalize by Provider. kb 06/27 00:45 Admitted to Tele accompanied by tech, family with patient, via stretcher, room 207, bb with chart, Report called to Mikala ESCOBAR Condition: stable Instructed on the need for admit. 01:05 Patient left the ED. bb Signatures: Dispatcher [employer] EDMS Indiana Warner, PEGGYC DEBRA-Lloydb Rin Kc mr Susan Pink RN RN bb Daniel Sutherland FNP-C CARD DEALER-Kadi Suárez, LUZ RN ld1 Rose Mary Teran, LUZ RN tp1
[2022-06-26] MEDS ORDERED: ENOXAPARIN 80 MG/0.8 ML SQ ONE (22:50)
[2022-06-27] MEDS ORDERED: HYDROCODONE/APAP 5/325 MG TAB PO PRN (00:56)
[2022-06-27] MEDS ORDERED: ONDANSETRON 4 MG/2 ML VIAL IV PRN (00:56)
--- NOTE | 2022-06-27 00:56 | P.HP ---
Certification for Inpatient Patient admitted to: Observation With expected LOS: <2 Midnights Patient will require the following post-hospital care: None Practitioner: I am a practitioner with admitting privileges, knowledge of patient current condition, hospital course, and medical plan of care. Services: Services provided to patient in accordance with Admission requirements found in Title 42 Section 412.3 of the Code of Federal Regulations Patient History Date of Service: 06/27/22 Reason for admission: Bilateral PE History of Present Illness: 36-year-old otherwise healthy female presents emergency department for 3 days of pleuritic chest pain, shortness of breath. She was evaluated in the emergency department and had an elevated D-dimer, CT PE protocol was performed which revealed extensive bilateral pulmonary emboli involving the lobar and segmental branches of the right middle, right lower and left lower lobes. Small segmental branch emboli seen in the right upper lobe. Small left pleural effusion. Lateral and posterior left lung base parenchymal opacification may be hemorrhage from pulmonary infarction. Initial troponin negative, patient saturating 100% on room air in no respiratory distress. Discussed case with pulmonology who recommends Lovenox, she was given dose of Lovenox in the emergency department ED provider wishes to admit for further evaluation and management. Possible risk factors for PE in her case would be her use of Depo-Provera injection for control as well as recent travel with a 2 to 3-day drive to [place] last month. Allergies No Known Allergies Allergy (Unverified 08/13/12 01:05) Home Medications: Hydrocodone 5/APAP 325 [[place] 5/325] 1 tab PO Q6H PRN #15 tab 12/12/12 levoFLOXacin [Levaquin*] 500 mg PO DAILY #10 tab 12/12/12 metroNIDAZOLE [Flagyl*] 500 mg PO TID #30 tablet 12/12/12 - Past Medical/Surgical History -: None -: x3 Psychosocial/ Personal History: [id number] mother, lives with family - Family History Family History: Reviewed- Non-Contributory - Social History Smoking Status: Never smoker Alcohol use: No CD- Drugs: No Caffeine use: No Place of Residence: Home Review of Systems 10-point ROS is otherwise unremarkable Respiratory: Shortness of Breath Cardiovascular: Chest Pain Physical Examination - Physical Exam General: Alert, In no apparent distress, Oriented x3 HEENT: Atraumatic, PERRLA, Mucous membr. moist/pink, EOMI, Sclerae nonicteric Neck: Supple, 2+ carotid pulse no bruit, No LAD, Without JVD or thyroid abnormality Respiratory: Clear to auscultation bilaterally, Normal air movement Cardiovascular: Regular rate/rhythm, Normal S1 S2 Capillary refill: <2 Seconds Gastrointestinal: Normal bowel sounds, No tenderness Musculoskeletal: No tenderness Integumentary: No rashes Neurological: Normal gait, Normal speech, Normal strength at 5/5 x4 extr, Normal tone, Normal affect Lymphatics: No axilla or inguinal lymphadenopathy - Studies Laboratory Data (last 24 hrs) 06/26/22 19:03: WBC 9.20, Hgb 13.5, Hct 39.6, Plt Count 241 06/26/22 19:03: Sodium 137, Potassium 3.3 L, BUN 11, Creatinine 0.84, Glucose 145 H Assessment and Plan - Plan Assessment: Bilateral PE Plan: Bilateral PE: Likely secondary to Depo-Provera/travel. Pulmonology consulted/case discussed. Continue therapeutic Lovenox for time being. Patient saturating 100% on room air, troponin negative. Anticipate patient can be transition to NOAC after further discussion with pulmonology tomorrow. Will obtain echocardiogram to evaluate for heart strain. DVT PPX: Therapeutic Lovenox Code status: Full Discharge Plan: Home Plan to discharge in: 24 Hours - Advance Directives Does patient have a Living Will: No Does patient have a Durable POA for Healthcare: No - Code Status/Comfort Care Code Status Assessed: Yes (Full code) Critical Care: No Time Spent Managing Pts Care (In Minutes): 55
[2022-06-27 01:29] VITALS: BMI 27.6
[2022-06-27 01:59] VITALS: O2SAT 100
[2022-06-27 05:46] LABS: Absolute Lymphocytes (CBC) 1.8 K/uL (0.7-4.9); Hematocrit 38.3 % (36.0-45.0); Lymphocytes % 24.3 % (15.3-44.8); MCV 91.1 fL (80-100); MPV 8.8 fL (7.6-11.3)
[2022-06-27 05:57] LABS: Potassium 3.7 mmol/L (3.5-5.1)
[2022-06-27] MEDS ORDERED: POTASSIUM CL SA 10 MEQ TAB PO ONE (09:00)
[2022-06-27] MEDS ORDERED: ENOXAPARIN 80 MG/0.8 ML SQ SCH (09:00)
[2022-06-27] MEDS ORDERED: CODEINE 30MG/APAP 300MG TAB PO PRN (10:37)
[2022-06-27 12:21] VITALS: BP 117/70; TEMP 97.2
--- NOTE | 2022-06-27 12:26 | P.CNS ---
Date of Consult: 06/27/22 Reason for Consult: Pulmonary emboli Chief Complaint: Bilateral PE History of Present Illness: Patient is 36 years of age started having some pleuritic chest pain about 3 weeks ago first on the right side then migrated to the left came into the emergency room with slight shortness of breath worsening left-sided pleuritic chest pain was diagnosed with bilateral pulmonary emboli no other prior medical problems no prior history of thromboembolism patient is on control medication Allergies No Known Allergies Allergy (Verified 06/27/22 01:29) Home Medications: Calcium Carbonate [Calcium] 500 mg PO DAILY 06/27/22 Iron 18 mg PO DAILY 06/27/22 [place]-3 Fatty Acids [[place]-3] 1 cap PO DAILY 06/27/22 - Past Medical/Surgical History Diabetic: No -: None -: x3 Psychosocial/ Personal History: [id number] mother, lives with family - Family History Mother Medical History: Hypertension, Diabetes Father Medical History: Hypertension, Diabetes Brother Medical History: Diabetes - Social History Smoking Status: Never smoker Alcohol use: No CD- Drugs: No Caffeine use: No Place of Residence: Home Review of Systems 10-point ROS is otherwise unremarkable Physical Examination Temp Pulse Resp BP Pulse Ox 97.2 F 75 12 117/70 96 06/27/22 12:00 06/27/22 12:00 06/27/22 12:00 06/27/22 12:00 06/27/22 12:00 General: Alert, In no apparent distress, Oriented x3 Neck: Supple Respiratory: Clear to auscultation bilaterally Cardiovascular: No edema, Regular rate/rhythm, Normal S1 S2 Laboratory Data (last 24 hrs) 06/26/22 19:03: WBC 9.20, Hgb 13.5, Hct 39.6, Plt Count 241 06/26/22 19:03: Sodium 137, Potassium 3.3 L, BUN 11, Creatinine 0.84, Glucose 145 H - Problems (1) Pulmonary emboli Current Visit: Yes Status: Acute Plan: Patient is 76 years of age admitted with bilateral pulmonary emboli hemodynamically stable is not requiring oxygen planing of pleuritic chest pain CT scan reviewed she does have a left-sided pleural effusion with a peripheral infiltrate patient to avoid any control medication to follow-up with her MANAGER OF BUSINESS/primary care doctor plan for discharge on DOAC hemodynamically stable stable 3 to 6 months of anticoagulation echocardiogram probably not useful Qualifiers: Acute cor pulmonale presence: without acute cor pulmonale
--- NOTE | 2022-06-27 13:56 | EKG ---
Test Date: 2022-06-26 Test Time: 18:54:26 [employer] Inspector: TP MEASUREMENT RESULTS: Intervals: Rate: 91 MN: 146 QRSD: 66 QT: 344 QTc: 423 [place]: P: 62 MN: 146 QRS: 72 T: 58 INTERPRETIVE STATEMENTS: Normal sinus rhythm Normal ECG Compared to ECG 05/08/2017 16:34:08 No significant changes Electronically Signed On 06-27-22 13:54:58 DIRECTOR NURSING SERVICE by Marco A Pryor
--- NOTE | 2022-06-27 14:32 | ECHO ---
HEIGHT: 5 ft 1 in WEIGHT: 145 lb 14.4 oz DATE OF STUDY: 06/27/[address]: Daniel Sutherland NP 2-DIMENSIONAL: YES M.MODE: YES DOPPLER: YES COLOR FLOW: YES TDS: PORTABLE: DEFINITY: BUBBLE STUDY: DIAGNOSIS: EVALUATE FOR HEART STRAIN/ PULMONARY EMBOLISM CARDIAC HISTORY: CATHERIZATION: NO SURGERY: NO PROSTHETIC VALVE: NO PACEMAKER: NO MEASUREMENTS (cm) DIASTOLIC (NORMALS) SYSTOLIC (NORMALS) IVSd 0.9 (0.6-1.2) LA Diam 2.6 (1.9-4.0) LVEF 64% LVIDd 4.3 (3.5-5.7) LVIDs 2.8 (2.0-3.5) %FS 35% LVPWd 0.9 (0.6-1.2) Ao Diam 2.4 (2.0-3.7) 2 DIMENSIONAL ASSESSMENT: RIGHT ATRIUM: NORMAL LEFT ATRIUM: NORMAL RIGHT VENTRICLE: NORMAL LEFT VENTRICLE: NORMAL TRICUSPID VALVE: MILD TRICUSPID REGURGITATION MITRAL VALVE: NORMAL PULMONIC VALVE: NORMAL AORTIC VALVE: NORMAL PERICARDIAL EFFUSION: NON AORTIC ROOT: NORMAL LEFT VENTRICULAR WALL MOTION: NORMAL DOPPLER/COLOR FLOW: MILD TRICUSPID REGURGITATION COMMENTS: NORMAL LEFT VENTRICULAR EJECTION FRACTION 60-65 WITH NORMAL WALL MOTION. NORMAL RIGHT VENTRICULAR SIZE AND FUNCTION (NO STRAIN). MILD TRICUSPID REGURGITATION. NORMAL DIASTOLIC FUNCTION. TECHNOLOGIST: SHYLA CAMPOVERDE
--- NOTE | 2022-06-27 21:16 | P.DS ---
Admission Date: 06/27/22 Discharge Date: 06/27/22 Disposition: ROUTINE DISCHARGE Discharge Condition: GOOD Reason for Admission: Bilateral PE Consultations: Pulm - Dr. Stokes Brief History of Present Illness: 36yo F, without significant PMH. Presented to ED due to 3 days of pleuritic chest pain, shortness of breat / dyspnea on exertion. Workup in ED noted elevated d-dimer, and CT chest: extensive bilateral PE (R>L). She was given therapeutic lovenox and admitted for further evaluation and management. She reported recent travel with 2-[address] to [place] a few weeks ago and use of depo-provera injections. Hospital Course: Problem List Bilateral PE Patient presented with pleuritic chest pain and dyspnea on exertion. She was found to have extensive pulmonary emboli in right lung, and pulmonary emboli on left lung base as well, with small pleural effusion. Pulmonology was consulted, patient treated with Lovenox. She did not require oxygen supplementation. Echocardiogram was normal, no evidence of right heart strain. Vitals were stable / within normal limits, and her pain improved. She was deemed stable for discharge home on Xarelto. She will need 3-6 months of anticoagulation. This is provoked PE, risk increased with control and recent long car ride. Recommended to stop her control and to follow up with BOWL ATTENDANT to discuss control options with lower risk for blood clots.. Follow up with PCP within 1 week. Follow up with Dr. Stokes (Pulmonology) in ~2 weeks. Expected to continue with some chest discomfort and shortness of breath - especially with movement. This is expected to slowly improve over days to weeks. Vital Signs/Physical Exam: Temp Pulse Resp BP Pulse Ox 97.2 F 75 12 117/70 96 06/27/22 12:00 06/27/22 12:00 06/27/22 14:58 06/27/22 12:00 06/27/22 14:58 General: Alert, In no apparent distress, Oriented x3 HEENT: EOMI, Sclerae nonicteric Neck: Supple, No LAD Respiratory: Diminished, Other (nonlabored respirations on room air) Cardiovascular: No edema, Regular rate/rhythm Gastrointestinal: Soft and benign, Non-distended, No tenderness Musculoskeletal: No contractures, No tenderness Integumentary: No breakdown, No significant lesion Neurological: Normal speech, Normal strength at 5/5 x4 extr Laboratory Data at Discharge: WBC 7.30 K/uL (4.3-10.9) 06/27/22 05:32 Hgb 13.4 g/dL (12.0-15.0) 06/27/22 05:32 Hct 38.3 % (36.0-45.0) 06/27/22 05:32 Plt Count 240 K/uL (152-406) 06/27/22 05:32 Sodium 138 mmol/L (136-145) 06/27/22 05:32 Potassium 3.7 mmol/L (3.5-5.1) 06/27/22 05:32 BUN 8 mg/dL (7-18) 06/27/22 05:32 Creatinine 0.73 mg/dL (0.55-1.3) 06/27/22 05:32 Glucose 103 mg/dL (74-106) 06/27/22 05:32 Home Medications: Calcium Carbonate [Calcium] 500 mg PO DAILY 06/27/22 Codeine/APAP [Tylenol W/Codeine #3 tab] 1 tab PO Q8HP PRN #10 tab 06/27/22 Iron 18 mg PO DAILY 06/27/22 [place]-3 Fatty Acids [[place]-3] 1 cap PO DAILY 06/27/22 Rivaroxaban [Xarelto] 1 tab PO SEECOM 30 Days #1 packet 06/27/22 New Medications: Codeine/APAP [Tylenol W/Codeine #3 tab] 1 tab PO Q8HP PRN #10 tab PRN Reason: Pain Rivaroxaban [Xarelto] 1 tab PO SEECOM 30 Days #1 packet Physician Discharge Instructions: Patient presented with pleuritic chest pain and dyspnea on exertion. She was found to have extensive pulmonary emboli in right lung, and pulmonary emboli on left lung base as well, with small pleural effusion. Pulmonology was consulted, patient treated with Lovenox. She did not require oxygen supplementation. Echocardiogram was normal, no evidence of right heart strain. Vitals were stable / within normal limits, and her pain improved. She was deemed stable for discharge home on Xarelto. She will need 3-6 months of anticoagulation. This is provoked PE, risk increased with control and recent long car ride. Recommended to stop her control and to follow up with BOWL ATTENDANT to discuss control options with lower risk for blood clots.. Follow up with PCP within 1 week. Follow up with Dr. Stokes (Pulmonology) in ~2 weeks. Expected to continue with some chest discomfort and shortness of breath - especially with movement. This is expected to slowly improve over days to weeks. Followup: NONE,NONE [Primary Care Provider] - 1 Week Time spent managing pt's care (in minutes): 45
== END 2022-06-27 16:17 | disposition home or self-care (01) ==
LOC: ER 18:23 → ERHOLD 06-27 00:25 → 2ND 06-27 00:50
PROVIDERS: ADMIT Hospitalist; ATTEND Hospitalist
DX: I26.99 Other pulmonary embolism without acute cor pulmonale (principal); Z20.822 Contact with and (suspected) exposure to COVID-19
CPT/HCPCS: 93005; 93306; 85025 ×2; 80048 ×2; 36415; 81025; 85379; 81003; 84484; 83880; 71275; 71045; 96372; 99285; U0003; Q9967; G0378 ×2